=== PATIENT | male | born 1990 | race Caucasian/White ===

== ENCOUNTER 2020-07-08 22:54 | Emergency (ER) | payer OTHER ==
[~2020-07-08 22:54] MED LIST: FLEXERIL 10 MG10 MG PO; IBUPROFEN800 MG PO
[2020-07-08] MEDS ORDERED: LODINE CAP 300300 MG PO (23:50)
== END 2020-07-09 | disposition home or self-care (01) ==
LOC: ER1 22:54
DX: S93.401A Sprain of unspecified ligament of right ankle, initial encounter (principal); F17.210 Nicotine dependence, cigarettes, uncomplicated; X50.1XXA Overexertion from prolonged static or awkward postures, initial encounter; Y92.009 Unspecified place in unspecified non-institutional (private) residence as the place of occurrence of the external cause
CPT/HCPCS: 73610; 99283

== ENCOUNTER → 2020-07-16 | Outpatient (CLI) | payer OTHER ==
[~2020-07-16] MED LIST changes: +LODINE CAP 300300 MG PO
== END ==
LOC: KOH-I 14:54
DX: S89.91XA Unspecified injury of right lower leg, initial encounter (principal)
CPT/HCPCS: 73610